=== PATIENT | female | born 1995 ===

== ENCOUNTER 2017-09-30 05:09 | Emergency (ER) | payer SELFPAY ==
[2017-09-30] MEDS ORDERED: Lidocaine 2% w Epi 1:100,000 Inj IJ ONE ×3 (05:21→07:08)
[2017-09-30 05:28] VITALS: TEMP 97.8
[2017-09-30] MEDS: Sodium Chloride 0.9% 1,000 ML IV STA (05:53)
[2017-09-30 05:55] LABS: BASO # 0.1 K/uL (0.0-0.2); BASO % 0.7 % (0.0-2.0); EOS % 0.2 % (0.0-4.0); HEMATOCRIT 42.6 % (34.0-47.0); LYMPH # 3.1 K/uL (1.0-4.3); LYMPH % 27.1 % (20.0-40.0); MEAN CORPUSCULAR HEMOGLOBIN 28.1 pg (27.0-31.0); MEAN CORPUSCULAR HGB CONC 33.1 g/dL (33.0-37.0); MEAN PLATELET VOLUME 7.9 fl (7.2-11.7); MONO # 0.6 K/uL (0.0-0.8); MONO % 5.2 % (0.0-10.0); NEUT # 7.7 K/uL (1.8-7.0); NEUT % 66.8 % (50.0-75.0); NRBC % 0.1 % (0.0-0.0); RED CELL DISTRIBUTION WIDTH 14.6 % (11.5-14.5); WHITE BLOOD COUNT 11.5 K/uL (4.8-10.8)
[2017-09-30] MEDS ORDERED: Morphine 4 MG/ML VIAL ONE (05:57)
--- NOTE | 2017-09-30 06:07 | ED PDOC ---
HPI: General Adult Time Seen by Provider: 09/30/17 05:30 Chief Complaint (Nursing): Abnormal Skin Integrity Chief Complaint (Provider): laceration History Per: Patient Additional Complaint(s): 22 year old presents with laceration to right buttocks s/p fall while at a club. Patient was dancing on a glass table when she fell through the table sustaining laceration. She arrives via ambulance. Patient is intoxicated and arrives with friend at bedside. Past Medical History Reviewed: Historical Data, Nursing Documentation, Vital Signs Vital Signs: Last Vital Signs Temp 97.8 F 09/30/17 05:23 Pulse 90 09/30/17 09:14 Resp 16 09/30/17 09:14 BP 90/52 L 09/30/17 09:14 Pulse Ox 99 09/30/17 20:54 - Medical History PMH: No Chronic Diseases - Family History Family History: States: Unknown Family Hx - Social History Alcohol: Social - Immunization History Hx Tetanus Toxoid Vaccination: No (unknown) - Home Medications Home Medications: Ambulatory Orders Medication Instructions Recorded Amoxicillin/Clavulanate [Augmentin 1 tab PO BID #14 tab 09/30/17 875 MG-125 MG] Ibuprofen [Motrin] 600 mg PO TID #30 tab 09/30/17 - Allergies Allergies/Adverse Reactions: Allergies Allergy/AdvReac Type Severity Reaction Status Date / Time No Known Allergies Allergy Verified 09/30/17 05:28 Review of Systems Skin: Positive for: Other (laceration to right buttocks) Psych: Positive for: Other (etoh) Physical Exam - Reviewed Nursing Documentation Reviewed: Yes Vital Signs Reviewed: Yes - Physical Exam Appears: Positive for: Well, Non-toxic, No Acute Distress Skin: Negative for: Rash Eye Exam: Positive for: Normal appearance Cardiovascular/Chest: Positive for: Regular Rate, Rhythm Respiratory: Positive for: Normal Breath Sounds Extremity: Positive for: Other (14 cm by 6 cm deep laceration noted to mid right buttocks with no active bleeding, (+) exposure of fatty tissue, full rom right leg, normal sensation surrounding wound) Neurologic/Psych: Positive for: Alert (alert but intoxicated), Mood/Affect ( anxious, tearful) - Laboratory Results Result Diagrams: 09/30/17 05:45 09/30/17 05:45 - ECG O2 Sat by Pulse Oximetry: 99 Pulse Ox Interpretation: Normal Medical Decision Making Medical Decision Makin22 year old with deep laceration to right buttocks Plan: CT pelvis with IV contrast IVF BAL CBC CMP PT/PTT IV zofran IV morphine Disposition - Clinical Impression Clinical Impression: Laceration of buttock, Intoxication, Alcohol intoxication - Patient ED Disposition Is Patient to be Admitted: Transfer of Care - Disposition Disposition: Transfer of Care Disposition Time: 06:07 Condition: FAIR Additional Instructions: Follow up with your PCP or return to ED for suture removal in 2 weeks. Take your medications as instructed. Sigue con salas PCP o regrese a urgencias para la extraccin de suturas en 2 semanas. [facility] main medicamentos segn las instrucciones. Prescriptions: Amoxicillin/Clavulanate [Augmentin 875 MG-125 MG] 1 tab PO BID #14 tab Ibuprofen [Motrin] 600 mg PO TID #30 tab Instructions: Care For Your Stitches (ED), Laceration (ED), Alcohol Intoxication (ED) Print Language: UPPER SORBIAN Patient Signed Over To: Flaco Lyons III Handoff Comments: Signed out pending diagnostic testing results and final disposiion
[2017-09-30 06:10] LABS: PARTIAL THROMBOPLASTIN TIME 26.6 Seconds (25.6-37.1)
[2017-09-30 06:12] LABS: ALB/GLOB RATIO 1.3 (1.0-2.1); ALCOHOL SERUM 251 mg/dl (0-10); ALKALINE PHOSPHATASE 90 U/L (38-126); ALT/SGPT 31 U/L (9-52); AST/SGOT 26 U/L (14-36); BILIRUBIN,TOTAL 0.3 mg/dl (0.2-1.3); BLOOD UREA NITROGEN 15 mg/dl (7-17); CALCIUM 9.6 mg/dL (8.4-10.2); CARBON DIOXIDE 20 mmol/L (22-30); CHLORIDE 108 mmol/L (98-107); GFR AFRICAN-AMERICAN > 60; GLUCOSE,RANDOM 91 mg/dL (65-105); POTASSIUM 4.3 MMOL/L (3.6-5.0); SODIUM 145 mmol/l (132-148); TOTAL PROTEIN 7.9 G/DL (6.3-8.2)
[2017-09-30] MEDS ORDERED: Iohexol 300 100 ML IJ ONE (06:30)
--- NOTE | 2017-09-30 06:57 | CT ---
EXAM: CT Pelvis With Intravenous Contrast CLINICAL HISTORY: 22 years old, female; Injury or trauma; Injury Laceration rt buttock. R/O fb; Initial encounter; With foreign body; Right; Pelvic region; Additional info: Laceration to right buttocks, R/O fb TECHNIQUE: Axial computed tomography images of the pelvis with intravenous contrast. All CT scans at this facility use one or more dose reduction techniques, viz.: automated exposure control; ma/kV adjustment per patient size (including targeted exams where dose is matched to indication; i.e. head); or iterative reconstruction technique. Coronal and sagittal reformatted images were created and reviewed. CONTRAST: 95 mL of OMNI 300 administered intravenously. COMPARISON: No relevant prior studies available. FINDINGS: Bowel: No obstruction. No mucosal thickening. Appendix: No findings to suggest acute appendicitis. Intraperitoneal space: No significant fluid collection. No free air. Bladder: Distended bladder. Reproductive: IUD within lower uterine segment. Small ovarian follicles. Bones/joints: No acute fracture. Soft tissues: Soft tissue irregularity/minimal stranding right gluteal region. No radiopaque foreign bodies. Vasculature: Unremarkable. No aneurysm. Lymph nodes: No pathologically enlarged lymph nodes. IMPRESSION: 1. Right gluteal soft tissue injury. No radiopaque foreign bodies. 2. Low-lying IUD.
--- NOTE | 2017-09-30 07:18 | ED PDOC ---
- Laboratory Results Result Diagrams: 09/30/17 05:45 09/30/17 05:45 - ECG O2 Sat by Pulse Oximetry: 99 Medical Decision Making Medical Decision Makinyo F s/p reported fall through glass table, large R buttock laceration Surgery consulted for repair Requires sobriety to r/o nerve injury Endorsed Dr Proctor and Dr Hicks surgery saw patient 715am labs reviewed, etoh elevated, hgb normal CT TECHNIQUE: Axial computed tomography images of the pelvis with intravenous contrast. All CT scans at this facility use one or more dose reduction techniques, viz.: automated exposure control; ma/kV adjustment per patient size (including targeted exams where dose is matched to indication; i.e. head); or iterative reconstruction technique. Coronal and sagittal reformatted images were created and reviewed. CONTRAST: 95 mL of OMNI 300 administered intravenously. COMPARISON: No relevant prior studies available. FINDINGS: Bowel: No obstruction. No mucosal thickening. Appendix: No findings to suggest acute appendicitis. Intraperitoneal space: No significant fluid collection. No free air. Bladder: Distended bladder. Reproductive: IUD within lower uterine segment. Small ovarian follicles. Bones/joints: No acute fracture. Soft tissues: Soft tissue irregularity/minimal stranding right gluteal region. No radiopaque foreign bodies. Vasculature: Unremarkable. No aneurysm. Lymph nodes: No pathologically enlarged lymph nodes. IMPRESSION: 1. Right gluteal soft tissue injury. No radiopaque foreign bodies. 2. Low-lying IUD. Thank you for allowing us to participate in the care of your patient. Disposition - Clinical Impression Clinical Impression: Laceration of buttock, Intoxication - POA Present On Arrival: Falls Or Trauma - Disposition Disposition: Transfer of Care Disposition Time: 07:18 Condition: FAIR Forms: [employer] (G[place]) Patient Signed Over To: Clara Proctor Handoff Comments: pending repair of wound, dispo
--- NOTE | 2017-09-30 07:49 | ED PDOC ---
- Laboratory Results Result Diagrams: 09/30/17 05:45 09/30/17 05:45 <Ladi Hicks - Last Filed: 09/30/17 08:14> - Laboratory Results Result Diagrams: 09/30/17 05:45 09/30/17 05:45 - ECG O2 Sat by Pulse Oximetry: 99 (RA) Pulse Ox Interpretation: Normal <Clara Proctor - Last Filed: 09/30/17 11:08> Medical Decision Making <Ladi Hicks - Last Filed: 09/30/17 08:14> <Clara Proctor - Last Filed: 09/30/17 11:08> Medical Decision Makin:00 Patient signed over from Flaco Lyons DO to me, Clara Proctor MD pending wound repair by surgical supervisor, re-evaluation of pain, and eventual disposition. 08:46 Pt is alert and oriented, ambulatory with steady gait. Laceration repaired by surgical supervisor, Dr. Hicks, see procedure note completed by surgical supervisor. Pt referred back to primary and was told to f/u in ED in 2 weeks for suture removal. Scribe Attestation: Documented by Dominga Portillo, acting as a scribe for Clara Proctor MD. Provider Scribe Attestation: All medical record entries made by the Scribe were at my direction and personally dictated by me. I have reviewed the chart and agree that the record accurately reflects my personal performance of the history, physical exam, medical decision making, and the department course for this patient. I have also personally directed, reviewed, and agree with the discharge instructions and disposition. (Clara Proctor) Disposition <Ladi Hicks - Last Filed: 09/30/17 08:14> - POA Present On Arrival: Falls Or Trauma - Disposition Disposition: Routine/Home Disposition Time: 09:00 <Clara Proctor - Last Filed: 09/30/17 11:08> - Clinical Impression Clinical Impression: Laceration of buttock, Intoxication, Alcohol intoxication - Disposition Referrals: [facility] [Outside] Condition: GOOD Additional Instructions: Follow up with your PCP or return to ED for suture removal in 2 weeks. Take your medications as instructed. Sigue con salas PCP o regrese a urgencias para la extraccin de suturas en 2 semanas. [place] main medicamentos segn las instrucciones. Prescriptions: Amoxicillin/Clavulanate [Augmentin 875 MG-125 MG] 1 tab PO BID #14 tab Ibuprofen [Motrin] 600 mg PO TID #30 tab Instructions: Care For Your Stitches (ED), Laceration (ED), Alcohol Intoxication (ED) Print Language: TURKISH Laceration - Laceration Repair No standard instances Wound Length (In cm): 9cm Description Of Wound: Clean, Irregular (curvilinear) Wound Cleansed With: Sterile Saline Anesthesia: Lidocaine 2%, With Epi Wound Examination: Irrigated With Saline, No FB With Wound Exploration, No Tendon Injury With Wound Exploration Wound Closure: Suture Suture Technique And Material Used: Mattress, Prolene (4-0) Wound Complexity: Intermediate (closed in 3 layers, 2 layers of deep sutures- vicyrl 4-0, 4 sutures in each layer; last layer closed with 4-0 prolene horizontal mattress suture) <Ladi Hicks - Last Filed: 09/30/17 08:14>
[2017-09-30 08:36] VITALS: RESP 16
[2017-09-30 09:15] VITALS: BP 90/52; PULSE 90
[2017-09-30 11:08] VITALS: O2SAT 99
== END 2017-09-30 09:10 | disposition home or self-care (01) ==
LOC: H.ER 05:09
DX: F10.129 Alcohol abuse with intoxication, unspecified (principal); S31.821A Laceration without foreign body of left buttock, initial encounter; W25.XXXA Contact with sharp glass, initial encounter; Y92.89 Other specified places as the place of occurrence of the external cause; Y93.41 Activity, dancing
CPT/HCPCS: 12004; 72193; 80053; 81025; 85025; 85610; 85730; 90471; 90715; 96374; 99283; G0480; J2270; J2405; J7040; Q9967